=== PATIENT | female | born 1970 | race Caucasian/White ===

== ENCOUNTER 2017-09-18 14:46 | Inpatient (IN) | payer BC, MEDICARE ==
[~2017-09-18] VITALS: Ht 162.6 cm; Wt 65.9 kg
[2017-09-18 15:12] LABS: BASOPHILS % (AUTO) 0.5 % (0-1); EOSINOPHILS # (AUTO) 0.1 X10'3 (0-0.9); EOSINOPHILS % (AUTO) 1.8 % (0-6); HEMATOCRIT 35.7 % (35.0-45.0); HEMOGLOBIN 12.5 g/dl (12.0-16.0); LYMPHOCYTES # (AUTO) 1.5 X10'3 (1.1-4.8); LYMPHOCYTES % (AUTO) 34.5 % (21-51); MEAN CORPUSCULAR HEMOGLOBIN 31.7 PG (27.0-31.0); MEAN CORPUSCULAR VOLUME 90.7 FL (78-98); MEAN PLATELET VOLUME 9.9 FL (7.4-10.4); MONOCYTES # (AUTO) 0.4 X10'3 (0-0.9); MONOCYTES % (AUTO) 8.5 % (2-12); NEUTROPHILS # (AUTO) 2.3 X10'3 (1.8-7.7); NEUTROPHILS % (AUTO) 54.7 % (42-75); PLATELET COUNT 200 X10'3 (140-440); RED BLOOD COUNT 3.94 X10'6 (4.20-5.60); RED CELL DISTRIBUTION WIDTH 12.6 % (11.5-14.5); WHITE BLOOD COUNT 4.3 X10'3 (4.5-11.0)
[2017-09-18 15:15] LABS: PARTIAL THROMBOPLASTIN TIME 26 SECONDS (22-32); PROTHROMBIN TIME 10.1 SECONDS (9.0-12.0)
[2017-09-18 15:23] LABS: ALANINE AMINOTRANSFERASE 23 U/L (12-78); ALBUMIN/GLOBULIN RATIO 1.5 (1.1-1.5); ALKALINE PHOSPHATASE 68 IU/L (46-116); ANION GAP 7 (8-16); ASPARTATE AMINO TRANSFERASE 18 U/L (10-37); BILIRUBIN,TOTAL 0.3 MG/DL (0.1-1.0); BLOOD UREA NITROGEN 17 MG/DL (7-18); BUN/CREATININE RATIO 24.6 (6.6-38.0); CALCIUM 8.8 MG/DL (8.5-10.1); CHLORIDE 106 MMOL/L (99-107); CREATININE 0.69 MG/DL (0.40-0.90); GLUCOSE 96 MG/DL (70-104); POTASSIUM 3.6 MMOL/L (3.5-5.1); SODIUM 144 MMOL/L (135-145); TOTAL PROTEIN 6.7 G/DL (6.4-8.2); TROPONIN I < 0.04 NG/ML (0.0-0.05); eGFR > 90 ML/MIN
[2017-09-18] MEDS ORDERED: ASPI-12 PO (16:50)
[2017-09-18] MEDS ORDERED: OMEP40CA37 PO (16:59)
[2017-09-18] MEDS ORDERED: EFF25T PO (16:59)
[2017-09-18] MEDS ORDERED: ZOLP10TA PO (16:59)
[2017-09-18] MEDS ORDERED: CETI10CA PO (16:59)
[2017-09-18] MEDS ORDERED: METO50TA7 PO (16:59)
[2017-09-18] MEDS ORDERED: GABA300C PO (16:59)
[2017-09-18] MEDS ORDERED: RANI150T12 PO (16:59)
[2017-09-18] MEDS ORDERED: TIZA2TAB4 PO ×2 (16:59)
[2017-09-18] MEDS ORDERED: SYN0.088T PO (16:59)
[2017-09-18] MEDS ORDERED: MOME17SP BOTHNARES (16:59)
[2017-09-18] MEDS ORDERED: MONT10TA21 PO (16:59)
[2017-09-18] MEDS ORDERED: FENT-92 TD (17:03)
[2017-09-18] MEDS ORDERED: HYDR-565 PO (17:03)
[2017-09-18] MEDS ORDERED: ZOLM5TAB9 PO (17:03)
[2017-09-18] MEDS ORDERED: CALC500T11 PO (17:06)
[2017-09-18] MEDS ORDERED: CHOL400T57 CORPAK (17:06)
[2017-09-18] MEDS ORDERED: MULT-1085 PO (17:06)
[2017-09-18] MEDS ORDERED: ASPI-144 PO (17:08)
[2017-09-18] MEDS ORDERED: PEG15DRO4 EACHEYE (17:08)
[2017-09-18] MEDS: K and/or MAG REPLACEMENT MC SCH (17:30)
[2017-09-18] MEDS ORDERED: HYDROcodone/acetaminophen 10/325mg tab PO PRN (17:30)
[2017-09-18] MEDS ORDERED: magnesium Cl slow-release 64mg tablet PO PRN (17:30)
[2017-09-18] MEDS ORDERED: HYDROcodone/acetaminophen 5mg/325mg tablet PO PRN (17:30)
[2017-09-18] MEDS ORDERED: ondansetron/PF 4mg/2ml inj IV PRN (17:30)
[2017-09-18] MEDS ORDERED: magnesium hydroxide 30ml (MOM) UD suspension PO PRN (17:30)
[2017-09-18] MEDS ORDERED: acetaminophen 325mg tablet PO PRN (17:30)
[2017-09-18] MEDS ORDERED: magnesium 2GM in 50ml NS 50 ML IV PRN (17:30)
[2017-09-18] MEDS ORDERED: mag hydrox/Alum hydrox/simeth 30ml oral suspension PO PRN (17:30)
[2017-09-18] MEDS ORDERED: potassium Cl 20 mEq SR tablet PO PRN ×2 (17:30)
[2017-09-18] MEDS ORDERED: potassium Cl 40MEQ/NS 500ml 500 ML IV PRN ×2 (17:30)
[2017-09-18] MEDS ORDERED: magnesium 4gm in 100ml NS 100 ML IV PRN (17:30)
[2017-09-18] MEDS: normal saline 1000ml 1,000 ML IV SCH (19:00)
[2017-09-18] MEDS ORDERED: SUMAtriptan 25 MG tablet PO PRN (19:45)
[2017-09-18] MEDS ORDERED: VENL75CA55 PO (19:46)
[2017-09-18] MEDS ORDERED: polyvinyl alcohol ophthalmic drops 15ml bottle EACHEYE PRN (20:05)
[2017-09-18] MEDS ORDERED: HYDROcodone/acetaminophen 10/325mg tab PO SCH (21:00)
[2017-09-18] MEDS ORDERED: RANITIDINE HCL PO SCH (21:00)
[2017-09-18] MEDS ORDERED: temazepam 15mg capsule PO PRN (21:00)
[2017-09-18 22:00] VITALS: BP 135/82
[2017-09-18] MEDS: gabapentin 300mg capsule PO SCH (22:27)
[2017-09-18] MEDS: heparin, porcine 5000 units/ml vial SQ SCH (22:27)
[2017-09-19 02:00] VITALS: BP 117/88
[2017-09-19] MEDS: normal saline 1000ml 1,000 ML IV SCH ×2 (03:29→06:04)
[2017-09-19 06:00] VITALS: BP 127/84
[2017-09-19 06:01] LABS: BASOPHILS % (AUTO) 0.3 % (0-1); EOSINOPHILS # (AUTO) 0.1 X10'3 (0-0.9); EOSINOPHILS % (AUTO) 2.8 % (0-6); HEMATOCRIT 35.7 % (35.0-45.0); HEMOGLOBIN 12.2 g/dl (12.0-16.0); LYMPHOCYTES # (AUTO) 1.6 X10'3 (1.1-4.8); LYMPHOCYTES % (AUTO) 46.3 % (21-51); MEAN CORPUSCULAR HEMOGLOBIN 31.4 PG (27.0-31.0); MEAN CORPUSCULAR HGB CONC 34.3 % (33.0-36.5); MEAN CORPUSCULAR VOLUME 91.6 FL (78-98); MEAN PLATELET VOLUME 10.4 FL (7.4-10.4); MONOCYTES # (AUTO) 0.3 X10'3 (0-0.9); MONOCYTES % (AUTO) 8.7 % (2-12); NEUTROPHILS # (AUTO) 1.5 X10'3 (1.8-7.7); NEUTROPHILS % (AUTO) 41.9 % (42-75); PLATELET COUNT 181 X10'3 (140-440); RED CELL DISTRIBUTION WIDTH 13.1 % (11.5-14.5); WHITE BLOOD COUNT 3.5 X10'3 (4.5-11.0)
[2017-09-19 06:13] LABS: PARTIAL THROMBOPLASTIN TIME 27 SECONDS (22-32); PROTHROMBIN TIME 10.2 SECONDS (9.0-12.0)
[2017-09-19] MEDS ORDERED: pantoprazole 40mg Tablet.DR PO SCH (07:30)
[2017-09-19] MEDS: K and/or MAG REPLACEMENT MC SCH (07:55)
[2017-09-19 08:00] VITALS: BP_SYST 101; BP_SYST 106; BP_SYST 108; BP_DIAS 70; BP_DIAS 74; BP_DIAS 79
[2017-09-19] MEDS ORDERED: levoTHYROXINE 88mcg tablet PO SCH (08:00)
[2017-09-19] MEDS ORDERED: pantoprazole 40 MG vial IV SCH (08:00)
[2017-09-19] MEDS ORDERED: cetirizine 10mg tablet PO SCH (08:00)
[2017-09-19] MEDS ORDERED: aspirin 325mg tablet, delayed-release (Ecotrin) PO SCH (08:00)
[2017-09-19] MEDS ORDERED: fluticasone nasal spray 16GM bottle NS SCH (08:00)
[2017-09-19] MEDS ORDERED: montelukast 10mg tablet PO SCH (08:00)
[2017-09-19] MEDS ORDERED: venlafaxine XR 75mg capsule (Q24H) PO SCH (08:00)
[2017-09-19] MEDS ORDERED: metoprolol succinate 25mg (24-HOUR) SR. Tablet PO SCH (08:00)
[2017-09-19] MEDS ORDERED: fentaNYL 75 MCG/hour patch.TD72 TD SCH (08:00)
[2017-09-19] MEDS: gabapentin 300mg capsule PO SCH (08:03)
[2017-09-19] MEDS: heparin, porcine 5000 units/ml vial SQ SCH (08:05)
[2017-09-19] MEDS ORDERED: calcium carbonate 500mg chew tablet PO SCH (08:30)
[2017-09-19 10:00] VITALS: BP 134/68
== END 2017-09-19 11:10 | disposition home or self-care (01) | DRG 91 ==
LOC: ER 14:47 → ED HOLD 17:29 → ORTHO 4S 19:06
PROVIDERS: ADMIT Internal Medicine; ATTEND Internal Medicine
DX: R29.810 Facial weakness (principal); G93.41 Metabolic encephalopathy; G25.9 Extrapyramidal and movement disorder, unspecified; G62.9 Polyneuropathy, unspecified; G89.4 Chronic pain syndrome; R47.81 Slurred speech; Z88.5 Allergy status to narcotic agent; Z79.899 Other long term (current) drug therapy
CPT/HCPCS: 36415; 70450; 70551; 71045; 80053; 82948; 83735; 84484; 85025; 85610; 85730; 87070; 97116; 97162; 99285; C9113; J1644; J7030